=== PATIENT | male | born 1960 | race Caucasian/White ===

== ENCOUNTER → 2020-04-16 09:50 | Outpatient (CLI) | payer OTHER, SELFPAY ==
[2020-04-16 10:15] LABS: RBC Urine None Seen (0-5/HPF); WBC Urine None Seen (0-5/HPF)
[2020-04-16 11:33] LABS: Add Manual Diff / Slide Review NO; Basophils Absolute Auto 100 /uL (0-100); Eosinophils Absolute Auto 200 /uL (0-450); Eosinophils Percent Auto 2.4 % (2-4); Hematocrit 43.5 % (41-53); Hemoglobin 14.3 g/dL (13.5-17.5); Lymphocytes Absolute Auto 1200 /uL (1100-4500); Lymphocytes Percent Auto 17.3 % (25-40); Mean Corpuscular HGB Conc 32.9 % (30-36); Mean Corpuscular Volume 88.1 fL (80-100); Monocytes Absolute Auto 500 /uL (0-900); Neutrophils Absolute Auto 4800 /uL (1500-7000); Neutrophils Percent Auto 72.3 % (50-75); Platelet Count 216 X10^3/uL (150-400); Red Blood Cell Count 4.94 X10^6/uL (4.5-5.9); Red Cell Distribution Width 13.4 % (11.6-14.8); White Blood Cell Count 6.7 X10^3/uL (4.5-11.0)
[2020-04-16 11:34] LABS: Appearance Urine UA CLEAR; Bilirubin Urine UA NEGATIVE (NEGATIVE); Color Urine UA YELLOW; Glucose Urine UA NEGATIVE (Negative); Ketones Urine UA NEGATIVE (NEGATIVE); Leukocyte Esterase Urine UA NEGATIVE (NEGATIVE); Nitrite Urine UA NEGATIVE (Negative); Occult Blood Urine UA NEGATIVE (Negative); Protein Urine UA NEGATIVE (Negative); Urobilinogen Urine UA 0.2 E.U./dL (0.2); pH Urine UA 5.5 (4.5-8.0)
[2020-04-16 11:45] LABS: Blood Urea Nitrogen 17 mg/dL (9-20); Calcium 8.7 mg/dL (8.4-10.2); Carbon Dioxide 26 mmol/L (22-32); Chloride 103 mmol/L (98-107); Estimated Glomerular Filt Rate > 60.0 mL/min (>60); Glucose 98 mg/dL (80-110); HEMOLYSIS < 15 (0-50); Potassium 4.3 mmol/L (3.4-5.1); Sodium 137 mmol/L (137-145)
[2020-04-16 11:53] LABS: Hemoglobin A1C% w Est Avg Glu 5.4 % (4.0-6.0)
[2020-04-16 12:26] LABS: Bacteria Urine Occasional (0-1); Culture Indicated Urine Cult Not Indicated; Mucus Urine 2+ (Negative)
== END ==
PROVIDERS: Referring Provider Orthopaedic Surgery; Visit Provider Orthopaedic Surgery
DX: Z01.818 Encounter for other preprocedural examination (principal); Z01.812 Encounter for preprocedural laboratory examination; R73.9 Hyperglycemia, unspecified; N39.0 Urinary tract infection, site not specified
CPT/HCPCS: 36415; 80048; 81001; 83036; 85025; 93005; 93010

== ENCOUNTER → 2020-04-20 15:04 | Outpatient (CLI) | payer OTHER, SELFPAY ==
[2020-04-21 16:18] LABS: COVID19 Sendout Not Detected (Not Detect)
== END ==
PROVIDERS: Visit Provider Physician Assistant
DX: Z11.59 Encounter for screening for other viral diseases (principal)
CPT/HCPCS: 87635

== ENCOUNTER 2020-04-23 06:15 | Day surgery (SDC) | payer OTHER, SELFPAY ==
[2020-04-16 13:59] VITALS: BMI 28.8
[2020-04-23] VITALS (12 sets, daily range): BP systolic 102–142; BP diastolic 58–84; PULSE 63–100; RESP 11–18; TEMP 36.1–36.8; O2SAT 92–96; BMI 28.8
--- NOTE | 2020-04-23 | DI.RAD.S_ITS ---
PROCEDURE: XR HIP W PEL IF DONE LT 2V INDICATIONS: TOTAL LEFT HIP POST OP TECHNIQUE: AP pelvis and lateral view of the left hip acquired. COMPARISON: Located Within [facility], [place], XR HIP W PEL IF DONE LT 2V, 04/23/2020, 11:01. FINDINGS: Bones: Patient is status post left hip arthroplasty, with hardware components in expected positions. The hip joint appears congruent. The visualized bony structures appear intact. Moderate degenerative change in the right hip as well. Soft tissues: Overlying postoperative changes are noted. No suspicious soft tissue densities. IMPRESSION: 1. Expected appearance of left hip arthroplasty. 2. Moderate degeneration of the right hip. Dictated by: Alyce Garza M.D. on 04/23/2020 at 13:20 Approved by: Alyce Garza M.D. on 04/23/2020 at 13:21
--- NOTE | 2020-04-23 | DI.RAD.S_ITS ---
PROCEDURE: XR HIP W PEL IF DONE LT 2V INDICATIONS: LEFT TOTAL HIP TECHNIQUE: Intraoperative fluoroscopy for left hip replacement. COMPARISON: None. FINDINGS: Bones: Four intraoperative fluoroscopic spot images demonstrate left hip arthroplasty changes with components in the expected location. No visible unexpected fractures. IMPRESSION: Fluoroscopy for left hip arthroplasty. Dictated by: Alyce Garza M.D. on 04/23/2020 at 13:17 Approved by: Alyce Garza M.D. on 04/23/2020 at 13:18
[2020-04-23] MEDS: LACTATED RINGERS 1,000 ML 42 ML IV ×2 (07:48→09:32)
--- NOTE | 2020-04-23 08:24 | PM.PREOP ---
Pre-operative Note COVID-19 COVID-19 status: Negative Interval Note History & Physical reviewed/Exam performed by Physician: Yes Changes to H&P: No
--- NOTE | 2020-04-23 08:25 | P.OP_ITS ---
Operative Date/Time/Diagnoses Date of procedure: 04/23/20 Time of procedure: 08:25 Pre-op diagnosis: left hip osteoarthritis Post-op diagnosis: same Procedure & Clinicians Procedure: Left total hip arthroplasty anterior approach Same procedure as scheduled: Yes Indications: The patient has had progressively worsening left hip pain with radiographic changes consistent with arthritis. Non-operative management has failed and the patient has requested total hip replacement. The risks, benefits and alternatives to surgery were discussed with the patient prior to proceeding. Risks discussed included, but were not limited to, failure to relieve pain, leg length discrepancy, dislocation, stiffness, infection, nerve damage, deep venous thrombosis, pulmonary embolism, stroke, coma, heart attack, permanent paralysis and , as well as the potential need for eventual revision of the prosthetic. Surgeon: Mili Walden Medical Device Sales Consultant: Nikita Hendricks Anesthesia Type: General and Spinal Operative Notes Findings: Severe left hip osteoarthritis, good stability Closure Type: primary Specimen(s): none sent Prosthetic devices, grafts, tissues, transplants, or devices: Walden [employer] Nephew 60 mm R3 cup,one 20 mm screw, size 9 standard offset anthology, 36+ 0 head Estimated Blood Loss (mL): 250 Procedure in detail: The patient was brought to the operating room. Patient was carefully positioned in the supine position. Time-out was performed and antibiotics were given. Anesthesia was induced. He was positioned in the on the table in order to allow hyperextension of the hip. The left lower extremity was prepped and draped in a standard sterile fashion. An anterior left hip incision was made 1 fingerbreadth lateral to the anterior superior iliac spine and extended distally towards the greater trochanter. Dissection was carried out through skin and subcutaneous tissues. The skin and subcutaneous tissues were carefully injected with Marcaine. Superficial hemostasis was achieved. The fascia over the tensor fascia win was defined and incised with a knife. Two Allis clamps were used to grasp the fascia. Tensor fascia win was retracted laterally. A gelpi retractor was placed. Dissection was carried out down along the neck. The circumflex vessels were carefully identified and cauterized with the Aqua Mantis. There was good visualization of the femoral neck. A Cobra was placed superior to the neck and the gluteus fibers were carefully stripped from that superior aspect of the capsule. A 2nd retractor was placed along the inferior aspect of the neck. The rectus insertion along the capsule was partially released. A 3rd retractor that was then gently placed over the rim of the acetabulum under the rectus. Capsule was carefully incised and released from the intertrochanteric line circumferentially superior to the mid sagittal line and inferiorly to the mid sagittal line until the lesser trochanter was palpable. A tag stitch was placed both in the superior and inferior limb of the capsular insertion. Along the acetabulum capsule was also released up to the mid sagittal 12:00 position. A portion of the labrum was resected. A saw was used to perform an osteotomy at the level of the intertrochanteric line and the junction of the superior femoral neck leaving approximately 1 finger breath of residual inferior neck above the lesser trochanter. He had a very tight capsule which was meticulously mobilized throughout the procedure. We kept tagged in order to allow adequate retraction. A 2nd cut was made along the femoral neck at the base of the head and a napkin ring of neck was removed. Corkscrew was placed in the femoral head and the head was removed without difficulty. Retractors were then repositioned around the acetabulum. Residual labrum was resected and additional osteophytes were remov ed. A reamer that was 4 mm below the templated size was placed by hand in the acetabulum and it was reamed to centralize the acetabulum. It was then reamed up to 1 under the templated size and fluoroscopy was brought in to confirm the position of the reaming and depth of reaming. I reamed 1 under the anticipated size and touched the rim with line to line reaming. A trial cup was placed and noted that it was appropriately sized and fluoroscopy confirmed position and depth. The component was open and inserted without difficulty fluoroscopic imaging was used to confirm that the cup had been juan quately seated and was well positioned. It was further stabilized with a single screw. Neutral poly liner was placed. The cup was tested and noted to be stable. Attention was then directed to the femur. The femur was gently hyperextended additional capsular release was performed as needed in order to allow adequate visualization of the proximal femur with elevation of the femur. Patient was pl aced in a hyperextended slightly adducted position with maximum external rotation. Box osteotome was used to check for any residual neck as well as sclerotic bone along the trochanter. [place] pepper was placed in the femur. Additional broaching was performed. Canal finder was used to determine the alignment of the canal and position. Size 1 broach was placed. The canal was then appropriately broached up to the templated size as long as there was adequate stability of the broach and serial advancement of the broach without excessive impingement. Specific attention was directed at avoiding varus attempting to direct the distal aspect of the broach more anteriorly and avoiding excessive anteversion. Trial reduction showed acceptable range of motion, good stability, no posterior impingement, evangelical of leg length and appropriate lateral shuck. I also hyperflexed the hip and checked that there was no impingement anteriorly and there was good stability with flexion, adduction and internal rotation. Marcaine and Exparel were injected. The stem was placed without difficulty. Repeat trial reduction and x-ray showed acceptable overall position, length, and no evidence of the femoral fracture. Final head was placed. Wound was meticulously irrigated with normal saline. The hip was reduced and additional Exparel and Marcaine were injected. The capsule was closed with interrupted nonabsorbable sutures. The fascia of the tensor was closed with interrupted and running Vicryl. No drain was placed. Any tensor fascia win muscle that appeared to be contused or injured which was a minimal amount was carefully resected. Capsule around the tensor was injected with Exparel and Marcaine. The skin was closed with barbed stitches for the subcutaneous tissue and skin. We also used surgical glue. The wound was dressed sterilely. Brief Betadine soak was also used and was meticulously irrigated with normal saline. Patient was transferred to recovery room in satisfactory condition. Complications: none Post-operative Condition: stable Disposition: Acute Care Plan for aftercare: The patient will be maintained on a standard total hip replacement protocol with weight bearing as tolerated and anterior hip precautions. The patient will receive Aspirin and sequential compression devices for DVT prophylaxis. The patient will be discharged home when safe for the home environment.
[2020-04-23] MEDS: CEFAZOLIN 2 GM/100 ML FROZ.PIGGY IV ×2 (08:35→16:25)
[2020-04-23] MEDS: VANCOMYCIN 1,000 MG/200 ML PIGGYBACK 200 MG IV (08:45)
--- NOTE | 2020-04-23 09:08 | SUR.OPER ---
Supine on padded [place] table with bilateral legs secured in padded positioning boots and suspended in positioning spars, operative leg in traction per surgeon. Head on one pillow. Arm on non-operative side secured on padded armboard <90 degrees abduction. Arm on operative side padded and resting across chest then secured with tape over sheet. Padded perineal post in place per surgeon.
[2020-04-23] MEDS: BUPIVACAINE 0.25% W/ EPI 30 ML VIAL 60 ML INJ (09:16)
[2020-04-23] MEDS: BUPIVACAINE LIPOSOME 266 MG/20 ML VIAL INJ (09:17)
[2020-04-23] MEDS: SODIUM CHLORIDE IRRIG SOLUTION 250 ML, POVIDONE-IODINE SPONGE STICKS 1 APPLIC IRR (09:22)
[2020-04-23] MEDS: TRANEXAMIC ACID 1,000 MG VIAL 2000 MG INJ ×2 (12:16)
--- NOTE | 2020-04-23 13:10 | SUR.PHASEI ---
report called to MIK Morrison on floor. pt ready to transfer up to room now, taking po fluids well, denies pain or nausea, A&O, moving both feet and legs
[2020-04-23] MEDS: GABAPENTIN 600 MG TABLET PO ×3 (14:04→20:45)
[2020-04-23] MEDS: LACTATED RINGERS 1,000 ML 125 ML IV ×2 (14:04→21:29)
[2020-04-23] MEDS: ACETAMINOPHEN 325 MG TABLET 650 MG PO ×2 (14:09→20:45)
--- NOTE | 2020-04-23 14:51 | PC.NURSE ---
Addendum entered by Anne-Marie Laurent R.N. 04/24/20 12:34: pt discharged to home following lengthy conversation with pt and spouse- and after working with PT - MEDICATED WITH PO OXYCODONE AND GABAPENTIN PRIOR TO DC Original Note: pt received from [facility] having received 5mg po oxycodone there- he is alert/oriented and denies any discomfort - he did take scheduled tylenol and gabapentin but declined ibuprofen due to taking eliquis ( for hx of pe)- taking diet well and lr infusing at 125cc/h- pt has not voided post op yet- dressing to left anterior hip cdi- + cms bilaterally - knee hi scd's in place
--- NOTE | 2020-04-23 16:19 | PT.IIE ---
Current Diagnoses Unilateral primary osteoarthritis, left hip (04/23/20) Surgery Performed Operation Date: 04/23/20 07:45 Actual Procedures p Total Hip Arthroplasty/Anterior Approach(Left) - Mili Walden MD Surgical History (Last Updated 04/16/20 @ 14:13 by Jessica Neumann RN) History of vasectomy (Acute) Hx of appendectomy (Acute) Hx of arthroscopy of left knee (Acute) Hx of lithotripsy (Acute) Medical History (Last Updated 04/16/20 @ 14:13 by Jessica Neumann RN) Easy bruisability (Acute) Kidney stones (Acute) Low back pain (Acute) Osteoarthritis (Acute) Pulmonary embolism (Acute ~2016) Sleep apnea (Acute) Stomach ulcer (Acute) Physical Therapy Inpatient Evaluation/Re-Eval M1 PT/OT-IP Prior Functional Status Start: 04/23/20 14:59 Freq: NEEDED Status: Active Protocol: Document 04/23/20 15:50 AW (Rec: 04/23/20 16:19 AW [email or web address]) Medical Review Prior Functional Status Medical History Reviewed Yes Communication WNL. No known deficits. Mobility and Gait Independent but with difficulty on uneven terrain and on inclines. Activities of Daily Living and IADL's Dressing has been difficult but pt has remained independent with all ADL's and IADL's. Social History Household Members spouse Living Arrangements Apartment/Condo Number of Stairs To Enter/Railing? Pt currently lives in an apartment above his office/ shop. There are 17 SERA with left rail ascending. However, pt and his plan to stay at his poegkw-ub-snb's house at least until Wednesday. That house is one level and there are two SERA with no railing. Details below refer to the avnvnx-wd-job's house. 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 He lives with his , Jocelyn, who will be with him at his rjkybo-lj-rcb' s house at discharge. M2 PT-IP Current Condition Start: 04/23/20 14:59 Freq: NEEDED Status: Active Protocol: Document 04/23/20 15:50 AW (Rec: 09/22/20 16:19 AW [email or web address]) Physical Therapy Current Condition Current Condition Evaluation Date 04/23/20 Treatment Diagnosis L VIVIAN with anterior approach; difficulty in walking Onset Date 04/23/20 Precautions Anterior Hip Precautions No Hip Extension,No Hip External Rotation Weight Bearing Status Weight Bearing Status Weight Bear as Tolerated M3 PT-IP Subjective Start: 04/23/20 14:59 Freq: NEEDED Status: Active Protocol: Document 04/23/20 15:50 AW (Rec: 04/23/20 16:19 AW [email or web address]) Subjective Physical Therapy Visit Type Type Initial Evaluation Visit Start Time 15:06 Visit Stop Time 15:45 Total Visit Minutes 39 Physical Therapy Visit Comments Patient Comments Pt is willing to participate with PT Therapy Pain Assessment Pain When Pain Assessed During Mobility Pain Present Pain Present Pain Reported Location Left Hip Intensity 2 Pain Management Techniques Apply Cold,Timing of Activity with Medications M4 PT-IP Mobility and Gait Start: 04/23/20 14:59 Freq: NEEDED Status: Active Protocol: Document 04/23/20 15:50 AW (Rec: 04/23/20 16:19 AW [email or web address]) PT-Bed Mobility Assessment Supine to Sit Supine to Sit Standby Assistance Scooting Scooting to Edge of Bed Standby Assistance PT-Transfer Assessment Sit to and From Stand Sit to and from Stand Minimal Assistance,1 Person Assistance,Use of Upper Extremities Equipment Transfer Assistive Device Gait Belt,Front Wheeled Walker Transfers Transfer Destination Chair,Bedside Commode Transfer Technique Stand Step Pivot Transfer Ability Level of Assist Minimal Assistance,1 Person Assistance,Use of Upper Extremities Comments Mobility Comments Pt was lying in bed when PT arrived with spouse visiting in the room. PT provided brief education on anterior hip precautions. Pt completed supine to sit with HOB flat by first sitting up to long- sitting position and then scooting himself toward the left side of the bed. He pivoted his legs to dangle off the edge of the bed - all SBA . Pt then stood from the bed in lowest position min A x 1 due to initial unsteadiness. Pt had no sensation of urinary urgency but voided as he stood. He was able to pivot transfer to the BSC set up on his left side CGA and cues for quad activation. Pt sat on the commode but was unable to void. He stood again CGA and completed step pivot transfer to the bedside chair on his left side. BP was stable (SBP 133 before transfer and 118 after transfer) and pt denied lightheadedness or nausea. Pt was positioned on the chair with call light and all needs within reach. Pt agreed to use the call light for all mobility needs. Gait Assessment Gait Gait Assistance Required: Contact Guard Assist Distance (Feet) 3 Able to Maintain Weight Bearing Status Yes During Gait Assistive Devices Assistive Device Gait Belt,Front Wheeled Walker Gait Deviations General Gait Pattern Antalgic,Decreased Stride Length,Decreased Feet Clearance,Flexed Trunk,Step-to Gait Factors Limiting Gait Function Factors Limiting Gait Function Decreased Sensation,Decreased Strength,Limited Range of Motion,Pain,Poor Balance Comments Gait Comments Transfer only due to persistent numbness. See mobilty comments for details. Stair Climbing Assessment Comments Stair Climbing Comments Not assessed. Pt must complete stair training prior to discharge. PT-Balance Assessment Sitting Balance and Reactions Static Sitting Balance Ability Normal Dynamic Sitting Balance Ability Normal Standing Balance and Reactions Static Standing Balance Ability Good Dynamic Standing Balance Ability Good Device Used FWW M5 PT-IP Objective Assessments Start: 04/23/20 14:59 Freq: NEEDED Status: Active Protocol: Document 04/23/20 15:50 AW (Rec: 04/23/20 16:19 AW [email or web address]) Orientation Orientation/Cognition Level of Alertness Alert Orientation Name,Day of Week,Place, Situation Language Function Ability No Deficits Noted Safety Awareness Decreased Safety Awareness Memory Description No Deficits Noted Comments Pt is slightly impulsive, tending to overestimate his ability and requiring verbal cues for sequencing and pacing . Gross Range of Motion Lower Extremity ROM Assessment Left Impaired Strength Lower Extremity Strength Assessment Left Impaired Comments Strength Comments RLE grossly 5/5 Sensation Assessment Sensation Gross Sensation Right LE Impaired,Left LE Impaired Light Touch Impaired Proprioception (Position) Impaired Sensation Description Numbness Comments Sensation Comments Pt reports numbness to bilateral glutes and posterior thighs. Muscle Tone Muscle Tone WNL Yes M6 PT-IP Treatment Start: 04/23/20 14:59 Freq: NEEDED Status: Active Protocol: Document 04/23/20 15:50 AW (Rec: 04/23/20 16:19 AW [email or web address]) Physical Therapy Treatment Exercises Exercises Ankle Pumps,Gluteal Sets,Quad Sets,Heel Slides Education Education Provided Precautions,Weight Bearing Status,Post-Op Packet,Safety Other Treatments Other Treatment Performed Provided education on role of PT, plan of care, anterior hip precautions, and safe use of FWW. M7 PT-IP Assessment and Plan Start: 04/23/20 14:59 Freq: NEEDED Status: Active Protocol: Document 04/23/20 15:50 AW (Rec: 04/23/20 16:19 AW [email or web address]) PT Summary Assessment and Plan Potential Rehabilitation Potential Good Status of Condition at Evaluation Evolving Summary Impairments Pain,ROM,Strength,Balance, Sensation,Bed Mobility, Transfers,Gait,Activity Tolerance Assessment Summary Celestine is a 60 yo man seen for PT evaluation on POD0 following L VIVIAN with anterior approach. He is independent in all regards at baseline. He currently lives in an apartment above his shop with 17 steps to access but plans to stay at his wuvzdy-ty-yko's house with his assisting . There are only two steps to enter with no railing in that setting. On evaluation, pt numbness persists to BLE which limits his mobility to transfers only but he requries no more than min assist. PT anticipates he will progress quickly and be safe to discharge to his SOPHIA's house with assist. Outpatient PT is already scheduled to begin within a week. Goals Bed Mobility Goal Independent Transfer Goal Standby Assistance,Front Wheeled Walker Gait Goal Standby Assistance,Front Wheel Walker Gait Distance 200 Other Goals - up/down 2 steps without railing CGA Days to Meet Goals 2 Frequency of Treatment Frequency Of Treatment Twice a Day Treatment Plan Physical Therapy Treatment Plan Bed Mobility Training,Transfer Training,Gait Training, Therapeutic Exercise,Balance Retraining,Post Op Education, Discharge Planning,Hot or Cold Pack,Neuromuscular Re-ed Other Recommendations and Next Treatment review precautions, transfers, Focus gait training with FWW, stairs when able Recommendations To Nursing Amount of Assist Needed 1 Person Assist Discharge Recommendations PT Discharge Recommendations Home with Assistance, Outpatient PT Transportation Needs at Discharge Private Vehicle
[2020-04-23] MEDS: ONDANSETRON 4 MG ODT PO (16:25)
[2020-04-23] MEDS: ASPIRIN EC 81 MG TABLET PO (20:45)
[2020-04-23] MEDS: DOCUSATE 100 MG CAPSULE PO (20:45)
[2020-04-24] MEDS: CEFAZOLIN 2 GM/100 ML FROZ.PIGGY IV (00:22)
[2020-04-24 03:24] VITALS: BP 128/66; PULSE 70; RESP 16; TEMP 36.2; O2SAT 97
[2020-04-24] MEDS: OXYCODONE IR 5 MG TABLET PO ×3 (03:36→12:20)
[2020-04-24 05:14] LABS: Hematocrit 35.5 % (41-53); Hemoglobin 11.7 g/dL (13.5-17.5)
--- NOTE | 2020-04-24 07:46 | P.PN_ITS ---
Subjective Subjective Date Patient Seen: 04/24/20 Time Patient Seen: 07:47 Interval history: He is doing well with minimal pain and his left hip. He had no pain medially postoperatively but now notes that it is somewhat painful when he advances his leg. Does not have substantial pain with weight-bearing. He has been able to void spontaneously and has no nausea. Exam Vital Signs (past 8 hours): - 04/23/20 23:55 04/24/20 03:24 Temperature 97.3 F L 97.1 F L Pulse Rate 65 70 Respiratory Rate 16 16 Blood Pressure 113/68 128/66 Pulse Oximetry 94 97 Oxygen Delivery Method Room Air Oxygen Flow Rate 0 Narrative Exam Narrative: He gets out of bed without diff difficulty. His dressing is dry has no pain with axial loading of his leg but does have some with active hip fle xion. He is neurologically intact distinct distally and is calfs are soft bilaterally. Objective Labs Result Diagrams: 04/24/20 04:48 Labs: Laboratory Results - last 24 hr 04/24/20 04:48 Hgb 11.7 L Hct 35.5 L Assessment & Plan Assessment & Plan narrative: Doing well status post right total hip arthroplasty. Plan continue to mobilize out of bed with physical therapy and discharged home with outpatient physical therapy.
[2020-04-24 08:00] VITALS: BP 128/67; PULSE 70; RESP 18; TEMP 36.5; O2SAT 94
[2020-04-24] MEDS: DOCUSATE 100 MG CAPSULE PO (08:15)
[2020-04-24] MEDS: GABAPENTIN 600 MG TABLET PO ×2 (08:15→12:20)
[2020-04-24] MEDS: ACETAMINOPHEN 325 MG TABLET 650 MG PO (08:17)
--- NOTE | 2020-04-24 09:57 | PT.IPTN ---
Current Diagnoses Unilateral primary osteoarthritis, left hip (04/23/20) Surgery Performed Operation Date: 04/23/20 07:45 Actual Procedures p Total Hip Arthroplasty/Anterior Approach(Left) - Mili Walden MD Physical Therapy Treatment Note M2 PT-IP Current Condition Start: 04/23/20 14:59 Freq: NEEDED Status: Discharge Protocol: Document 04/23/20 15:50 AW (Rec: 04/23/20 16:19 AW [email or web address]) Physical Therapy Current Condition Current Condition Evaluation Date 04/23/20 Treatment Diagnosis L VIVIAN with anterior approach; difficulty in walking Onset Date 04/23/20 Precautions Anterior Hip Precautions No Hip Extension,No Hip External Rotation Weight Bearing Status Weight Bearing Status Weight Bear as Tolerated M3 PT-IP Subjective Start: 04/23/20 14:59 Freq: NEEDED Status: Discharge Protocol: Document 04/24/20 09:19 SP (Rec: 04/24/20 13:06 SP [email or web address]) Subjective Physical Therapy Visit Type Type Treatment Note Visit Start Time 09:19 Visit Stop Time 09:57 Total Visit Minutes 38 Number of SUPERVISOR INTELLIGENCE ANALYST Visits 1 Physical Therapy Visit Comments Patient Comments Pt is willing to participate with PT Therapy Pain Assessment Pain When Pain Assessed During Mobility Pain Present Pain Present Pain Reported Location Left Hip Intensity 6 Scale Used 2/10 at rest/ gait, 6/10 durign descend stairs/ decent into chair- ant hip Description Spasm,With Movement Pain Behaviors Facial Grimacing,Wincing Pain Management Techniques Apply Cold,Re-positioning, Timing of Activity with Medications M4 PT-IP Mobility and Gait Start: 04/23/20 14:59 Freq: NEEDED Status: Discharge Protocol: Document 04/24/20 09:19 SP (Rec: 04/24/20 13:06 SP [email or web address]) PT-Bed Mobility Assessment Supine to Sit Supine to Sit Standby Assistance Scooting Scooting to Edge of Bed Standby Assistance PT-Transfer Assessment Sit to and From Stand Sit to and from Stand Standby Assistance,Use of Upper Extremities Equipment Transfer Assistive Device Gait Belt,Front Wheeled Walker Orthotic/Prosthetic Devices or Brace: No Transfers Transfer Destination Chair Transfer Technique Stand Step Pivot Transfer Ability Level of Assist Standby Assistance,Use of Upper Extremities Comments Mobility Comments Supine>sitting SBA using BUE, ambulated around room and standing balance at sink to brush teeth sBA, stable and FWW good positioning. Pt ambulated further distance full inpatient floor room<> stairs SBA, ascend/descend 2 PF steps using fWW CGA, ascend / descend 6 stairs LHR and occasional MEDICATION ASSISTANT on R initially step to patterning. Gait Assessment Gait Gait Assistance Required: Contact Guard Assist Able to Maintain Weight Bearing Status Yes During Gait Assistive Devices Assistive Device Gait Belt,Front Wheeled Walker Orthotic/Prosthetic Devices or Brace: No Gait Deviations General Gait Pattern Antalgic,Decreased Stride Length,Decreased Feet Clearance,Flexed Trunk,Step-to Gait Factors Limiting Gait Function Factors Limiting Gait Function Decreased Sensation,Decreased Strength,Limited Range of Motion,Pain,Poor Balance Comments Gait Comments Ambulated full distance of inpatient floor room<> stairs SBA, FWW step to gait improved with forward movement of FWW as progressed and little more receiprocal gait educated no L hip extension precautions, cued knee extension heel toe gait LLE, UE WB on FWW needed lessened as distance progressed. Stair Climbing Assessment Evaluation Level of Assist On Stairs Contact Guard Assistance Devices Stair Climbing Assistive Devices Front Wheel Walker Technique/Endurance Stair Climbing Direction Ascend and Descend Stair Climbing Technique Step to Step Number of Steps Climbed 1 Stair Climbing Set # Repetitions (reps) 2 Comments Stair Climbing Comments Ascend/descend 2 PF steps using FWW to assimulated enterance [id number] home and able to ascend/descend 6 stairs L HR and MEDICATION ASSISTANT on R during first stair then ableto complete rest just LHR step to gait CGA. SUPERVISOR INTELLIGENCE ANALYST confident patient can complete full 17 stairs if wanted at home but tiring and will plan to go to [id number] home for now. PT-Balance Assessment Sitting Balance and Reactions Static Sitting Balance Ability Normal Dynamic Sitting Balance Ability Normal Standing Balance and Reactions Static Standing Balance Ability Good Dynamic Standing Balance Ability Good Device Used FWW M5 PT-IP Objective Assessments Start: 04/23/20 14:59 Freq: NEEDED Status: Discharge Protocol: Document 04/23/20 15:50 AW (Rec: 04/23/20 16:19 AW [email or web address]) Orientation Orientation/Cognition Level of Alertness Alert Orientation Name,Day of Week,Place, Situation Language Function Ability No Deficits Noted Safety Awareness Decreased Safety Awareness Memory Description No Deficits Noted Comments Pt is slightly impulsive, tending to overestimate his ability and requiring verbal cues for sequencing and pacing . Gross Range of Motion Lower Extremity ROM Assessment Left Impaired Strength Lower Extremity Strength Assessment Left Impaired Comments Strength Comments RLE grossly 5/5 Sensation Assessment Sensation Gross Sensation Right LE Impaired,Left LE Impaired Light Touch Impaired Proprioception (Position) Impaired Sensation Description Numbness Comments Sensation Comments Pt reports numbness to bilateral glutes and posterior thighs. Muscle Tone Muscle Tone WNL Yes M6 PT-IP Treatment Start: 04/23/20 14:59 Freq: NEEDED Status: Discharge Protocol: Document 04/24/20 09:19 SP (Rec: 04/24/20 13:06 SP [email or web address]) Physical Therapy Treatment Education Education Provided Precautions,Weight Bearing Status,Post-Op Packet,Safety Other Treatments Other Treatment Performed Recalled anterior hip precautions, and safe use of FWW. M7 PT-IP Assessment and Plan Start: 04/23/20 14:59 Freq: NEEDED Status: Discharge Protocol: Document 04/24/20 09:19 SP (Rec: 04/24/20 13:06 SP [email or web address]) PT Summary Assessment and Plan Potential Rehabilitation Potential Good Status of Condition at Evaluation Evolving Summary Impairments Pain,ROM,Strength,Balance, Sensation,Bed Mobility, Transfers,Gait,Activity Tolerance Assessment Summary Pt required SBA during transfers, and gait, CGA during stair mgt. Pt reported low level discomfort L anterior thigh and increases during descend PF step and eccentric descent to sit, improved post education reposition LLE forward before sitting. Pt is ok to return home with when medically stable. Outpatient PT is already scheduled to begin within a week. Goals Bed Mobility Goal Independent Transfer Goal Standby Assistance,Front Wheeled Walker Gait Goal Standby Assistance,Front Wheel Walker Gait Distance 200 Other Goals - up/down 2 steps without railing CGA Days to Meet Goals 2 Frequency of Treatment Frequency Of Treatment Twice a Day Treatment Plan Physical Therapy Treatment Plan Bed Mobility Training,Transfer Training,Gait Training, Therapeutic Exercise,Balance Retraining,Post Op Education, Discharge Planning,Hot or Cold Pack,Neuromuscular Re-ed Other Recommendations and Next Treatment LE exercises, gait using fWW Focus Recommendations To Nursing Amount of Assist Needed 1 Person Assist Discharge Recommendations PT Discharge Recommendations Home with Assistance, Outpatient PT Transportation Needs at Discharge Private Vehicle
--- NOTE | 2020-04-24 13:05 | CM.IDA ---
Initial DCP Assessment Note Pt is a 60 yo male, resident of [place], now POD#1 from left hip surgery w/ Dr Walden PCP: Celina Muñoz Payer: Zakia Reviewed chart, pt discussed in multidisciplinary rounds this morning. Therapy has cleared pt for return home w/family to assist and pt has planned for home, DC order from Ortho has already been initiated this morning. No needs expected from DC planning team although will remain available in case this changes today. MICHAEL Sellers
== END 2020-04-24 12:50 | disposition home or self-care (01) ==
LOC: OR 06:18 → AC 06:20 → ICU 10:09
PROVIDERS: PCP Family Medicine; Referring Provider Orthopaedic Surgery; Visit Provider Orthopaedic Surgery
PROC: (CPT 27130; principal; 2020-04-23 07:45)
DX: M16.12 Unilateral primary osteoarthritis, left hip (principal); Z86.711 Personal history of pulmonary embolism; Z79.01 Long term (current) use of anticoagulants
CPT/HCPCS: 27130; 36415; 73502; 76000; 85014; 85018; 97110; 97116; 97161; 97530; C1776; C9290; J0171; J0690; J1100; J2250; J2274; J2405; J2704; J3010

== ENCOUNTER → 2021-01-15 09:50 | Outpatient (CLI) | payer OTHER, SELFPAY ==
[2020-04-23 13:46] VITALS: BMI 28.8
[2021-01-15 10:03] LABS: Bacteria Urine None Seen; RBC Urine None Seen (0-5/HPF); WBC Urine None Seen (0-5/HPF)
[2021-01-15 10:36] LABS: Appearance Urine UA CLEAR; Bilirubin Urine UA NEGATIVE (NEGATIVE); Color Urine UA YELLOW; Glucose Urine UA NEGATIVE (Negative); Ketones Urine UA NEGATIVE (NEGATIVE); Leukocyte Esterase Urine UA NEGATIVE (NEGATIVE); Nitrite Urine UA NEGATIVE (Negative); Occult Blood Urine UA TRACE-INTACT (Negative); Protein Urine UA NEGATIVE (Negative); Urobilinogen Urine UA 0.2 E.U./dL (0.2); pH Urine UA 5.5 (4.5-8.0)
[2021-01-15 10:42] LABS: Culture Indicated Urine Cult Not Indicated; Urine Comments Microscopic Normal
[2021-01-15 10:46] LABS: Hemoglobin A1C% w Est Avg Glu 5.4 % (4.0-6.0)
[2021-01-15 10:47] LABS: BUN Creatinine Ratio 23.5 (6-22); Blood Urea Nitrogen 16 mg/dL (9-20); Calcium 9.3 mg/dL (8.4-10.2); Carbon Dioxide 24 mmol/L (22-32); Chloride 105 mmol/L (98-107); Estimated Glomerular Filt Rate > 60.0 mL/min (>60); Glucose 81 mg/dL (80-110); HEMOLYSIS < 15 (0-50); Potassium 4.1 mmol/L (3.4-5.1); Sodium 136 mmol/L (137-145)
[2021-01-15 11:03] LABS: Erythrocyte Sedimentation Rate 1 MM/HR (0-15)
[2021-01-15 11:06] LABS: Add Manual Diff / Slide Review NO; Basophils Absolute Auto 100 /uL (0-100); Basophils Percent Auto 1.2 % (0-2); Eosinophils Absolute Auto 200 /uL (0-450); Eosinophils Percent Auto 2.9 % (2-4); Hematocrit 43.4 % (41-53); Hemoglobin 14.3 g/dL (13.5-17.5); Lymphocytes Absolute Auto 1400 /uL (1100-4500); Lymphocytes Percent Auto 23.2 % (25-40); Mean Corpuscular HGB Conc 32.9 % (30-36); Mean Corpuscular Hemoglobin 28.7 PG (26-34); Mean Corpuscular Volume 87.3 fL (80-100); Monocytes Absolute Auto 500 /uL (0-900); Monocytes Percent Auto 8.3 % (3-14); Neutrophils Absolute Auto 3800 /uL (1500-7000); Neutrophils Percent Auto 64.4 % (50-75); Platelet Count 226 X10^3/uL (150-400); Red Blood Cell Count 4.98 X10^6/uL (4.5-5.9); Red Cell Distribution Width 13.5 % (11.6-14.8); White Blood Cell Count 5.9 X10^3/uL (4.5-11.0)
== END ==
PROVIDERS: PCP Family Medicine; Referring Provider Orthopaedic Surgery; Visit Provider Orthopaedic Surgery
DX: Z01.818 Encounter for other preprocedural examination (principal); Z01.812 Encounter for preprocedural laboratory examination; R73.9 Hyperglycemia, unspecified; N39.0 Urinary tract infection, site not specified
CPT/HCPCS: 36415; 80048; 81001; 83036; 85025; 85651; 93005; 93010

== ENCOUNTER → 2021-01-27 07:51 | Outpatient (CLI) | payer OTHER, SELFPAY ==
[2020-04-23 13:46] VITALS: BMI 28.8
[2021-01-27 10:05] LABS: COVID19 -Nasal RAPID Negative (Negative)
== END ==
PROVIDERS: PCP Family Medicine; Referring Provider Physician Assistant; Visit Provider Physician Assistant
DX: Z01.812 Encounter for preprocedural laboratory examination (principal); Z20.822 Contact with and (suspected) exposure to COVID-19
CPT/HCPCS: 87635

== ENCOUNTER 2021-01-28 06:23 | Day surgery (SDC) | payer OTHER, SELFPAY ==
[2020-04-23 13:46] VITALS: BMI 28.8
[2021-01-24 12:38] VITALS: BMI 28.8
[2021-01-28] VITALS (13 sets, daily range): BP systolic 113–152; BP diastolic 56–105; PULSE 61–90; RESP 14–18; TEMP 36.1–36.8; O2SAT 95–100; BMI 30.7
--- NOTE | 2021-01-28 06:30 | DI.RAD.S_ITS ---
PROCEDURE: XR HIP W PEL IF DONE RT 2V INDICATIONS: Postop films TECHNIQUE: AP pelvis with lateral view(s) of the right hip(s). COMPARISON: [facility], [place], XR HIP W PEL IF DONE LT 2V, 04/23/2020, 12:47. FINDINGS: Bones: Patient is status post right total hip arthroplasty with anatomic right hip alignment. There is also prior left total hip arthroplasty with anatomic left hip alignment. No fractures or dislocations. No gross hardware loosening or failure. Pelvic ring appears intact. No suspicious bony lesions. Soft tissues: Expected postsurgical changes are noted in right thigh soft tissue. No suspicious soft tissue calcifications. IMPRESSION: Postop changes from right total hip arthroplasty with anatomic right hip alignment. Dictated by: Carl Dyer M.D. on 01/28/2021 at 12:31 Approved by: Carl Dyer M.D. on 01/28/2021 at 12:32
[2021-01-28] MEDS: CELECOXIB 200 MG CAPSULE PO (06:58)
[2021-01-28] MEDS: PREGABALIN 75 MG CAPSULE PO (06:58)
[2021-01-28] MEDS: VANCOMYCIN 1,000 MG/200 ML PIGGYBACK 200 MG IV (07:13)
[2021-01-28] MEDS: LACTATED RINGERS 1,000 ML 42 ML IV ×3 (07:20→11:05)
--- NOTE | 2021-01-28 07:33 | PM.PREOP ---
Pre-operative Note COVID-19 COVID-19 status: Negative Interval Note History & Physical reviewed/Exam performed by Physician: Yes Changes to H&P: No
--- NOTE | 2021-01-28 07:34 | PM.OP.1 ---
Operative Date/Time/Diagnoses Date of procedure: 01/28/21 Time of procedure: 07:45 Pre-op diagnosis: Right hip osteoarthritis Post-op diagnosis: same Procedure & Clinicians Procedure: Right total hip arthroplasty anterior approach Same procedure as scheduled: Yes Indications: The patient has had progressively worsening right hip pain with radiographic changes consistent with arthritis. Non-operative management has failed and the patient has requested total hip replacement. The risks, benefits and alternatives to surgery were discussed with the patient prior to proceeding. Risks discussed included, but were not limited to, failure to relieve pain, leg length discrepancy, dislocation, stiffness, infection, nerve damage, deep venous thrombosis, pulmonary embolism, stroke, coma, heart attack, permanent paralysis and , as well as the potential need for eventual revision of the prosthetic. Surgeon: Mili Walden Blending Tank Tender: Nikita Hendricks Anesthesia Type: General and Spinal Operative Notes Findings: Severe right hip osteoarthritis, good bone, adequate stability Closure Type: primary Specimen(s): none sent Prosthetic devices, grafts, tissues, transplants, or devices: Walden and Nephew 60 mm R3 cup, neutral poly liner, 36 by-3 Oxinium head size 10 standard offset anthology stem Estimated Blood Loss (mL): 250 Blood products transfused: none Procedure in detail: The patient was brought to the operating room. Patient was carefully positioned in the supine position. Time-out was performed and antibiotics were given. Anesthesia was induced. He was positioned in the on the table in order to allow hyperextension of the hip. The right lower extremity was prepped and draped in a standard sterile fashion. An anterior right hip incision was made 1 fingerbreadth lateral to the anterior superior iliac spine and extended distally towards the greater trochanter. Dissection was carried out through skin and subcutaneous tissues. The skin and subcutaneous tissues were carefully injected with Marcaine. Superficial hemostasis was achieved. The fascia over the tensor fascia win was defined and incised with a knife. Two Allis clamps were used to grasp the fascia. Tensor fascia win was retracted laterally. A gelpi retractor was placed. Dissection was carried out down along the neck. The circumflex vessels were carefully identified and cauterized with the Aqua Mantis. There was good visualization of the femoral neck. A Cobra was placed superior to the neck and the gluteus fibers were carefully stripped from that superior aspect of the capsule. A 2nd retractor was placed along the inferior aspect of the neck. The rectus insertion along the capsule was partially released. A 3rd retractor that was then gently placed over the rim of the acetabulum under the rectus. Capsule was carefully incised and released from the intertrochanteric line circumferentially superior to the mid sagittal line and inferiorly to the mid sagittal line until the lesser trochanter was palpable. A tag stitch was placed both in the superior and inferior limb of the capsular insertion. Along the acetabulum capsule was also released up to the mid sagittal 12:00 position. A portion of the labrum was resected. A saw was used to perform an osteotomy at the level of the intertrochanteric line and the junction of the superior femoral neck leaving approximately 1 finger breath of residual inferior neck above the lesser trochanter. A 2nd cut was made along the femoral neck at the base of the head and a napkin ring of neck was removed. Corkscrew was placed in the femoral head and the head was removed without difficulty. Retractors were then repositioned around the acetabulum. Residual labrum was resected and additional osteophytes were removed. A reamer that was 4 mm below the templated size was placed by hand in the acetabulum and it was reamed to centralize the acetabulum. It was then reamed up to 2 under the templated size and fluoroscopy was brought in to confirm the position of the reaming and depth of reaming. I reamed 1 under the anticipated size and touched the rim with line to line reaming. A trial cup was placed and noted that it was appropriately sized and fluoroscopy confirmed position and depth. The component was open and inserted without difficulty fluoroscopic imaging was used to confirm that the cup had been adequately seated and was well positioned. Neutral poly liner was placed. The cup was tested and noted to be stable. Attention was then directed to the femur. The femur was gently hyperextended additional capsular release was performed as needed in order to allow adequate visualization of the proximal femur with elevation of the femur. Patient was placed in a hyperextended slightly adducted position with maximum external rotation. Box osteotome was used to check for any residual neck as well as sclerotic bone along the trochanter. [place] pepper was placed in the femur. Additional broaching was performed. Canal finder was used to determine the alignment of the canal and position. Size 1 broach was placed. The canal was then appropriately broached up to the templated size as long as there was adequate stability of the broach and serial advancement of the broach without excessive impingement. Specific attention was directed at avoiding varus attempting to direct the distal aspect of the broach more anteriorly and avoiding excessive anteversion. Trial reduction showed acceptable range of motion, good stability, no posterior impingement, spiritism of leg length and appropriate lateral shuck. I also hyperflexed the hip and checked that there was no impingement anteriorly and there was good stability with flexion, adduction and internal rotation. Marcaine and Exparel were injected.. The stem was placed without difficulty. Repeat trial reduction and x-ray showed acceptable overall position, length, and no evidence of the femoral fracture. Final head was placed. Wound was meticulously irrigated with normal saline. The hip was reduced and additional Exparel and Marcaine were injected. The capsule was closed with interrupted nonabsorbable sutures. The fascia of the tensor was closed with interrupted and running Vicryl. No drain was placed. Any tensor fascia win muscle that appeared to be contused or injured which was a minimal amount was carefully resected. Capsule around the tensor was injected with Exparel and Marcaine. The skin was closed with barbed stitches for the subcutaneous tissue and skin. We also used surgical glue. The wound was dressed sterilely. Brief Betadine soak was also used and was meticulously irrigated with normal saline. Patient was transferred to recovery room in satisfactory condition. Complications: none Post-operative Condition: stable Disposition: Acute Care Plan for aftercare: The patient will be maintained on a standard total hip replacement protocol with weight bearing as tolerated and anterior hip precautions. The patient will receive Aspirin and sequential compression devices for DVT prophylaxis. The patient will be discharged home when safe for the home environment.
--- NOTE | 2021-01-28 07:35 | SUR.OPER ---
Supine on padded Garfield table with bilateral legs secured in padded positioning boots and suspended in positioning spars, operative leg in traction per surgeon. Head on one pillow. Arm on non-operative side secured on padded armboard <90 degrees abduction. Arm on operative side padded and resting across chest then secured with tape over sheet. Padded perineal post in place per surgeon.
[2021-01-28] MEDS: CEFAZOLIN 1 GM VIAL 2 GM IV ×2 (07:50→16:08)
[2021-01-28] MEDS: BUPIVACAINE 0.25% (PF) VIAL 30 ML INJ (08:29)
[2021-01-28] MEDS: EPINEPHrine 1 MG/ML 0.15 MG INJ (08:30)
[2021-01-28] MEDS: BUPIVACAINE LIPOSOME 266 MG/20 ML VIAL INJ (08:31)
[2021-01-28] MEDS: TRANEXAMIC ACID 1,000 MG VIAL 1000 MG INJ ×2 (08:32→11:00)
--- NOTE | 2021-01-28 11:11 | PC.NURSE ---
Day shift: Pt not on AC unit at this time.
--- NOTE | 2021-01-28 12:53 | DI.RAD.S_ITS ---
PROCEDURE: XR HIP W PEL IF DONE RT 2V INDICATIONS: Postop films TECHNIQUE: AP pelvis and lateral view of the right hip acquired. COMPARISON: [facility], [place], XR HIP W PEL IF DONE LT 2V, 04/23/2020, 12:47. [facility], [place], XR HIP W PEL IF DONE LT 2V, 04/23/2020, 11:01. FINDINGS: Bones: Patient is status post right hip arthroplasty, with hardware components in expected positions. The hip joint appears congruent. The visualized bony structures appear intact. Soft tissues: Overlying postoperative changes are noted. No suspicious soft tissue densities. IMPRESSION: Prior left total hip arthroplasty, new right total hip arthroplasty. No operative complication found. Normal alignment postoperatively. Dictated by: Tio Haney M.D. on 01/29/2021 at 12:21 Approved by: Tio Haney M.D. on 01/29/2021 at 12:21
--- NOTE | 2021-01-28 13:10 | PC.NURSE ---
Day shift: Pt on unit from PACU at approx 1215. He is A&Ox4. Denies any pain or nausea. Aquacel rt hip is CDI. No drains or Benson. VS WNL. RA 97%. Tolerating ice chips and water. Can move BLE's and sensation present. Spouse (Jocelyn) in room for support. Calf SCD's in place.
[2021-01-28] MEDS: LACTATED RINGERS 1,000 ML 125 ML IV ×2 (13:35→21:23)
[2021-01-28] MEDS: GABAPENTIN 600 MG TABLET PO ×3 (13:43→20:12)
[2021-01-28] MEDS: ACETAMINOPHEN 325 MG TABLET 650 MG PO ×2 (14:15→20:12)
--- NOTE | 2021-01-28 14:55 | PT.IIE ---
Current Diagnoses Unilateral primary osteoarthritis, right hip (01/28/21) Surgery Performed Operation Date: 01/28/21 07:45 Actual Procedures p Total Hip Arthroplasty/Anterior Approach(Right) - Mili Walden MD Medical History (Last Updated 04/16/20 @ 14:13 by Jessica Neumann, RN) Easy bruisability Kidney stones Low back pain Osteoarthritis Pulmonary embolism (~2016) Sleep apnea Stomach ulcer Physical Therapy Inpatient Evaluation/Re-Eval M1 PT/OT-IP Prior Functional Status Start: 01/28/21 17:33 Freq: NEEDED Status: Active Protocol: Document 01/28/21 14:55 AB (Rec: 01/28/21 17:47 AB [email or web address]) Medical Review Prior Functional Status Medical History Reviewed Yes Communication able to make needs know Mobility and Gait pt stated that he is independent with all mobilities and ambulation without AD Social History Household Members spouse Living Arrangements Apartment/Condo Number of Floors (Floors) One Floor Number of Stairs To Enter/Railing? 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 M2 PT-IP Current Condition Start: 01/28/21 17:33 Freq: NEEDED Status: Active Protocol: Document 01/28/21 14:55 AB (Rec: 01/28/21 17:47 AB [id number]) Physical Therapy Current Condition Current Condition Evaluation Date 01/28/21 Treatment Diagnosis s/p r VIVIAN anterior approach; difficulty in walking Onset Date 01/28/21 Precautions Anterior Hip Precautions No Hip Extension,No Hip External Rotation Weight Bearing Status Weight Bearing Status Weight Bear as Tolerated Allowed Weight Bearing Amount (enter % RLE WBAT or #) (%) M3 PT-IP Subjective Start: 01/28/21 17:33 Freq: NEEDED Status: Active Protocol: Document 01/28/21 14:55 AB (Rec: 01/28/21 17:47 AB [email or web address]) Subjective Physical Therapy Visit Type Type Initial Evaluation Visit Start Time 14:55 Visit Stop Time 15:30 Total Visit Minutes 35 Number of SUPERINTENDENT MAINTENANCE Visits 0 Physical Therapy Visit Comments Patient Comments agreeable to do PT Therapy Pain Assessment Pain Present Pain Present Denied Pain M4 PT-IP Mobility and Gait Start: 06/29/21 17:33 Freq: NEEDED Status: Active Protocol: Document 01/28/21 14:55 AB (Rec: 01/28/21 17:47 AB [email or web address]) PT-Bed Mobility Assessment Supine to Sit Supine to Sit Standby Assistance Sit to Supine Sit to Supine Standby Assistance PT-Transfer Assessment Sit to and From Stand Sit to and from Stand Minimal Assistance,1 Person Assistance,Use of Upper Extremities Equipment Transfer Assistive Device Gait Belt,Front Wheeled Walker Orthotic/Prosthetic Devices or Brace: No Comments Mobility Comments pt intially drowsy but able to answer questions and follow directions and wants to get up out of bed. reviewed anterior hip precautions with pt. pt requires cues to recall. spouse in room with pt. BP in supine: 133/78. pt completed supine to sit SBA and was able to sit on EOB SBA . completed sit to stand min A and cues for safety and ambulated in room with FWW ~ 40 ft and cues CGA. requested to go back to bed. C/o nausea afterwards but without emesis. BP checked: 136/80. completed sit to supine SBA. positioned pt on the bed. call light and table placed within reach. Gait Assessment Gait Gait Assistance Required: Contact Guard Assist,1 Person Assist Distance (Feet) 40 Able to Maintain Weight Bearing Status Yes During Gait Assistive Devices Assistive Device Gait Belt,Front Wheeled Walker Orthotic/Prosthetic Devices or Brace: No Gait Deviations General Gait Pattern Decreased Stride Length, Decreased Feet Clearance Factors Limiting Gait Function Factors Limiting Gait Function Decreased Activity Tolerance, Decreased Strength,Difficulty Following Directions,Poor Balance,Poor Safety Awareness Comments Gait Comments pls refer to mobility section for details PT-Balance Assessment Sitting Balance and Reactions Static Sitting Balance Ability Good Dynamic Sitting Balance Ability Good Standing Balance and Reactions Static Standing Balance Ability Fair Dynamic Standing Balance Ability Fair Device Used FWW M5 PT-IP Objective Assessments Start: 01/28/21 17:33 Freq: NEEDED Status: Active Protocol: Document 01/28/21 14:55 AB (Rec: 01/28/21 17:47 AB [email or web address]) Orientation Orientation/Cognition Level of Alertness Alert Orientation Name,Place,Situation Language Function Ability No Deficits Noted Safety Awareness Decreased Safety Awareness Gross Range of Motion Lower Extremity ROM Assessment Within Functional Limits Strength Lower Extremity Strength Assessment Within Functional Limits Muscle Tone Muscle Tone WNL Yes M6 PT-IP Treatment Start: 01/28/21 17:33 Freq: NEEDED Status: Active Protocol: Document 01/28/21 14:55 AB (Rec: 01/28/21 17:47 AB [id number]) Physical Therapy Treatment Education Education Provided Precautions,Weight Bearing Status,Post-Op Packet,Safety M7 PT-IP Assessment and Plan Start: 01/28/21 17:33 Freq: NEEDED Status: Active Protocol: Document 01/28/21 14:55 AB (Rec: 01/28/21 17:47 AB [id number]) PT Summary Assessment and Plan Potential Rehabilitation Potential Good Status of Condition at Evaluation Stable Summary Impairments Pain,ROM,Strength,Balance, Coordination,Cognition,Bed Mobility,Transfers,Gait, Activity Tolerance Assessment Summary pt s/p R VIVIAN and just had surgery this morning. pt requiring CGA to min A with mobility using FWW. c/o nausea limiting mobility. pt plans to go home with spouse to assist him at home. will have to complete stair climbing prior to d/c and will conduct caregiver training when appropriate. will continue to assess progress. Goals Bed Mobility Goal Independent Transfer Goal Independent,Front Wheeled Walker Gait Goal Independent,Front Wheel Walker Gait Distance 200 Other Goals up/down 17 steps B rail SBA Days to Meet Goals 5 Frequency of Treatment Frequency Of Treatment Twice a Day Treatment Plan Physical Therapy Treatment Plan Bed Mobility Training,Transfer Training,Gait Training, Therapeutic Exercise,Balance Retraining,Post Op Education, Discharge Planning,Hot or Cold Pack,Neuromuscular Re-ed, Coordination Retraining,Manual Therapy Precautions Anterior Hip Precautions No Hip Extension,No Hip External Rotation Other Precautions WBAT RLE Recommendations To Nursing Amount of Assist Needed 1 Person Assist Discharge Recommendations PT Discharge Recommendations Home with Assistance, Outpatient PT Transportation Needs at Discharge Private Vehicle
[2021-01-28] MEDS: diphenhydrAMINE 50 MG/ML VIAL 25 MG IV (16:08)
[2021-01-28] MEDS: IBUPROFEN 400 MG TABLET PO ×2 (16:54→20:12)
--- NOTE | 2021-01-28 20:01 | PC.NURSE ---
pt ambulated in hallway. min assist-fww.
[2021-01-28] MEDS: DOCUSATE 100 MG CAPSULE PO (20:12)
[2021-01-29] MEDS: CEFAZOLIN 1 GM VIAL 2 GM IV (00:30)
[2021-01-29] MEDS: IBUPROFEN 400 MG TABLET PO ×4 (00:31→13:46)
[2021-01-29] MEDS: diphenhydrAMINE 50 MG/ML VIAL 25 MG IV (00:35)
[2021-01-29 03:10] VITALS: BP 130/76; PULSE 63; RESP 16; TEMP 36.4
[2021-01-29 04:44] LABS: Hematocrit 38.7 % (41-53); Hemoglobin 12.5 g/dL (13.5-17.5)
[2021-01-29] MEDS: SODIUM CHLORIDE 0.9% FLUSH 10 ML IV (06:07)
[2021-01-29 08:00] VITALS: BP 125/70; PULSE 66; RESP 17; TEMP 36.6; O2SAT 96
--- NOTE | 2021-01-29 08:07 | PT.IPTN ---
Current Diagnoses Unilateral primary osteoarthritis, right hip (01/28/21) Surgery Performed Operation Date: 01/28/21 07:45 Actual Procedures p Total Hip Arthroplasty/Anterior Approach(Right) - Mili Walden MD Physical Therapy Treatment Note M2 PT-IP Current Condition Start: 01/28/21 17:33 Freq: NEEDED Status: Active Protocol: Document 01/28/21 14:55 AB (Rec: 01/28/21 17:47 AB [email or web address]) Physical Therapy Current Condition Current Condition Evaluation Date 01/28/21 Treatment Diagnosis s/p r VIVIAN anterior approach; difficulty in walking Onset Date 01/28/21 Precautions Anterior Hip Precautions No Hip Extension,No Hip External Rotation Weight Bearing Status Weight Bearing Status Weight Bear as Tolerated Allowed Weight Bearing Amount (enter % RLE WBAT or #) (%) M3 PT-IP Subjective Start: 01/28/21 17:33 Freq: NEEDED Status: Active Protocol: Document 01/29/21 07:31 MB (Rec: 01/29/21 08:07 MB [id number]) Subjective Physical Therapy Visit Type Type Treatment Note Visit Start Time 07:31 Visit Stop Time 07:56 Total Visit Minutes 25 Number of LAND CONSERVATION SPECIALIST Visits 0 Physical Therapy Visit Comments Patient Comments Pt states that he is doing well and he is agreeable to PT . Therapy Pain Assessment Pain When Pain Assessed During Mobility Pain Present Pain Present Denied Pain M4 PT-IP Mobility and Gait Start: 01/28/21 17:33 Freq: NEEDED Status: Active Protocol: Document 01/29/21 07:31 MB (Rec: 01/29/21 08:07 MB [id number]) PT-Bed Mobility Assessment Supine to Sit Supine to Sit Independent Sit to Supine Sit to Supine Independent Scooting Scooting to Edge of Bed Independent PT-Transfer Assessment Sit to and From Stand Sit to and from Stand Independent Equipment Transfer Assistive Device Gait Belt,Front Wheeled Walker Orthotic/Prosthetic Devices or Brace: No Comments Mobility Comments Pt alert and ready for PT, hopes to d/t today and denies pain. He performs bed mobility , sit to stand from bed, brushing teeth, urinating standing at commode and sit to finished goods inspector chair with I. PT provides set-up occ for toothbrush wrapper, opening mouth wash, getting hand tip inserter and mask Gait Assessment Gait Gait Assistance Required: Independent,Standby Assistance Distance (Feet) 150 Able to Maintain Weight Bearing Status Yes During Gait Assistive Devices Assistive Device Gait Belt,Front Wheeled Walker Orthotic/Prosthetic Devices or Brace: No Gait Deviations General Gait Pattern Decreased Stride Length, Decreased Feet Clearance, Flexed Trunk Factors Limiting Gait Function Factors Limiting Gait Function Decreased Strength Comments Gait Comments Pt gait trains from bed to sink, sink to BR and then BR out into hallway, down the hallway, up and down 3 steps x2 and back to chair in room: 6', 10', 160', 150' with post- op step-to gait pattern right and then left foot and slow edward. He denies pain. Stair Climbing Assessment Evaluation Level of Assist On Stairs Standby Assistance Devices Stair Climbing Assistive Devices Left Railing,Right Railing Technique/Endurance Stair Climbing Direction Ascend and Descend Stair Climbing Technique Step to Step Number of Steps Climbed 3 Stair Climbing Set # Repetitions (reps) 2 Comments Stair Climbing Comments Pt catches himself when he starts to descend with left foot first, he is able to manage stairs well. PT-Balance Assessment Sitting Balance and Reactions Static Sitting Balance Ability Good Dynamic Sitting Balance Ability Good Standing Balance and Reactions Static Standing Balance Ability Good Dynamic Standing Balance Ability Good Device Used RW M5 PT-IP Objective Assessments Start: 01/28/21 17:33 Freq: NEEDED Status: Active Protocol: Document 01/28/21 14:55 AB (Rec: 01/28/21 17:47 AB [id number]) Orientation Orientation/Cognition Level of Alertness Alert Orientation Name,Place,Situation Language Function Ability No Deficits Noted Safety Awareness Decreased Safety Awareness Gross Range of Motion Lower Extremity ROM Assessment Within Functional Limits Strength Lower Extremity Strength Assessment Within Functional Limits Muscle Tone Muscle Tone WNL Yes M6 PT-IP Treatment Start: 01/28/21 17:33 Freq: NEEDED Status: Active Protocol: Document 01/29/21 07:31 MB (Rec: 01/29/21 08:07 MB [id number]) Physical Therapy Treatment Education Education Provided Precautions Other Treatments Other Treatment Performed Follow-up with surgeon's office about OPPT M7 PT-IP Assessment and Plan Start: 01/28/21 17:33 Freq: NEEDED Status: Active Protocol: Document 01/29/21 07:31 MB (Rec: 01/29/21 08:07 MB [id number]) PT Summary Assessment and Plan Summary Assessment Summary Pt mobilizes well today in the bed, room, performing transfers, gait down the hallway and on the steps. He is ready to d/c acute PT. He has met PT goals (only opted to do steps x6 in order not to increase pain before d/c). Frequency of Treatment Frequency Of Treatment Discharge Precautions Anterior Hip Precautions No Hip Extension,No Hip External Rotation Other Precautions WBAT RLE Recommendations To Nursing Amount of Assist Needed Standby Assistance Discharge Recommendations PT Discharge Recommendations Home with Assistance, Outpatient PT Transportation Needs at Discharge Private Vehicle
[2021-01-29] MEDS: ACETAMINOPHEN 325 MG TABLET 650 MG PO ×2 (09:07→13:46)
[2021-01-29] MEDS: GABAPENTIN 600 MG TABLET PO ×3 (09:07→17:14)
[2021-01-29] MEDS: DOCUSATE 100 MG CAPSULE PO (09:07)
[2021-01-29] MEDS: OXYCODONE IR 5 MG TABLET PO ×2 (11:21→14:31)
--- NOTE | 2021-01-29 12:39 | PM.PNPO.1 ---
Subjective Subjective Date Patient Seen: 01/29/21 Time Patient Seen: 12:39 Interval history: Patient states he is doing well overall and is in mild discomfort at rest. At this time he denies fever, chills, nausea, chest pain, shortness of breath, or urinary retention. He reports good sensation throughout the bilateral lower extremities. Exam Vital Signs (past 8 hours): - 01/29/21 08:00 Temperature 98 F Pulse Rate 66 Respiratory Rate 17 Blood Pressure 125/70 Pulse Oximetry 96 Oxygen Delivery Method Room Air Oxygen Flow Rate 0 Narrative Exam Narrative: 60-year-old male postop day 1 status post right anterior total hip arthroplasty. Patient is resting comfortably in bed, is in no acute distress, is alert and oriented x3. Skin is warm dry, and the skin surrounding the incision site is free of erythema, warmth, induration, or discharge. Aquacel dressing over the incision site is clean, dry, and intact. Tenderness to palpation appreciated over the anterolateral portion of the proximal right thigh. Good sensation appreciated throughout the bilateral lower extremities to light touch. Hip flexion performed bilaterally without difficulty or discomfort, left greater than right. Ankle dorsiflexion, plantar flexion, eversion, inversion performed bilaterally without difficulty or discomfort. DP pulses palpated bilaterally. Calves are soft and nontender, negative Homans sign. No other signs of DVT appreciated. Const General: cooperative, healthy appearing and comfortable Resp Effort & Inspection: normal respiratory effort and able to speak in complete sentences Skin General: no rashes or lesions noted Objective Labs Result Diagrams: 01/29/21 04:30 Labs: Laboratory Results - last 24 hr 01/29/21 04:30 Hgb 12.5 L Hct 38.7 L PFSH Medical History Easy bruisability Kidney stones Low back pain Osteoarthritis Pulmonary embolism (~2015) Sleep apnea Stomach ulcer Surgical History History of total left hip arthroplasty (04/23/20) History of vasectomy Hx of appendectomy Hx of arthroscopy of left knee Hx of lithotripsy Social History household members: spouse Smoking Status: Never smoker alcohol intake: current Assessment & Plan Post-op Postoperative Procedures: Procedures Operation Date: 01/28/21 07:45 Actual Procedure Side Surgeon p Total Hip Arthroplasty/Anterior Approach Right Mili Walden MD Postoperative day: 1 Postoperative status: doing well Postoperative plan: ambulate Postoperative plan narrative: Patient is to continue working on ambulation with the assistance of a front wheeled walker with physical therapy. Anterior hip precautions, standard total hip replacement protocol. Current pain management regimen is to be continued as is adequately controlled the patient's pain level. Aspirin 81 mg twice daily is to be continued for DVT prophylaxis along with the assistance of sequential compression devices. Plan for discharge home likely today or tomorrow pending successful work with PT.
[2021-01-29 13:42] VITALS: BP 120/71; PULSE 63; RESP 16; TEMP 36.5; O2SAT 96
--- NOTE | 2021-01-29 14:54 | PC.NURSE ---
Feels ready to d/c home. Seen by PT and given their instructions. Pain in control with oxy. Awaits LINO Fried to see him and d/c to home.
--- NOTE | 2021-01-29 15:57 | CM.DANOTE ---
Patient is a 60 yo male who was admitted on 01/28/21 for R[facility]. Pt has [employer] for insurance and his PCP is Dr. Celina Muñoz. EMR was reviewed. Per Ortho PA, pt tolerated hip surgery well and has pain well managed and tolerating P.O. and may be stable for d/c home today or tomorrow pending PT. Per PT, pt was able to successfully complete stairs and CG training and recommending safe d/c home with spouse assist and outpt PT. SW met briefly bedside with pt and explained role and he confirms that he lives at home in [place] with his and is active and independent at baseline and does not use DME for ambulation typically. Pt does not anticipate any SW needs at d/c and preference is home with when medically stable. Plan: SW to follow for likely pt d/c home today vs tomorrow via spouse POV and outpt PT already set up. MICHAEL Garcia
[2021-01-29 16:12] VITALS: BP 132/74; PULSE 69; RESP 14; TEMP 36.2; O2SAT 94
--- NOTE | 2021-01-29 16:22 | PM.DS.1 ---
History of Present Illness History of Present Illness Date Patient Seen: 01/29/21 Time Patient Seen: 16:22 Chief complaint: OPB Narrative: Referred to previous HPI. Discharge Providers Provider Discharge Date: 01/29/21 Primary care physician: Celina Muñoz DO Consults: 01/27/21 12:50 Consult to Anesthesiology Routine Comment: Consulting Provider: Anesthesiologist Reason for consultation: Regional block for post operative pain control 01/28/21 06:30 Consult to Anesthesiology Routine Comment: Consulting Provider: Anesthesiologist Reason for consultation: Regional block for post operative pain control 01/28/21 13:10 Consult to Discharge Planning Routine Comment: Consult to Physical Therapy Evaluate & Treat Comment: Physician Instructions: post op VIVIAN protocol Consult to Respiratory Therapy Evaluate & Treat Comment: Physician Instructions: Evaluate and treat Discharge provider: Marc Fried PA-C Summary Hospital Course Discharge Diagnosis: Right hip osteoarthritis Status post right anterior total hip arthroplasty. Hospital Course: Patient was admitted to the hospital following the above-listed procedure for the above-listed diagnosis. Following the procedure the patient has been convalescing appropriately in his pain has been managed with his current pain management regimen. Following the procedure the dressing over the incision site has remained clean, dry, and intact. Xarelto has been used for DVT prophylaxis along with the assistance of sequential compression devices. Patient has successfully worked on ambulation with the assistance of a front wheeled walker with physical therapy. He has been maintained at weight-bearing as tolerated, anterior hip precautions, standard total hip replacement protocol. Status at Discharge Cognitive/behavioral status at discharge: oriented Functional status at discharge: uses cane/walker Overall status at discharge: patient is progressing back to baseline Exam Vital Signs (past 8 hours): - 01/29/21 13:42 01/29/21 16:12 Temperature 97.7 F 97.1 F L Pulse Rate 63 69 Respiratory Rate 16 14 Blood Pressure 120/71 132/74 Pulse Oximetry 96 94 Oxygen Delivery Method Room Air Oxygen Flow Rate 0 Narrative Exam Narrative: 60-year-old male postop day 1 status post right anterior total hip arthroplasty. Patient is resting comfortably in bed, is in no acute distress, is alert and oriented x3. Skin is warm dry, and the skin surrounding the incision site is free of erythema, warmth, induration, or discharge. Aquacel dressing over the incision site is clean, dry, and intact. Tenderness to palpation appreciated over the anterolateral portion of the proximal right thigh. Good sensation appreciated throughout the bilateral lower extremities to light touch. Hip flexion performed bilaterally without difficulty or discomfort, left greater than right. Ankle dorsiflexion, plantar flexion, eversion, inversion performed bilaterally without difficulty or discomfort. DP pulses palpated bilaterally. Calves are soft and nontender, negative Homans sign. No other signs of DVT appreciated. Const General: cooperative, healthy appearing and comfortable Resp Effort & Inspection: normal respiratory effort and able to speak in complete sentences Skin General: no rashes or lesions noted Objective Labs Result Diagrams: 01/29/21 04:30 Labs: Laboratory Results - last 24 hr 01/29/21 04:30 Hgb 12.5 L Hct 38.7 L PFSH Medical History Easy bruisability Kidney stones Low back pain Osteoarthritis Pulmonary embolism (~2015) Sleep apnea Stomach ulcer Surgical History History of total left hip arthroplasty (04/23/20) History of vasectomy Hx of appendectomy Hx of arthroscopy of left knee Hx of lithotripsy Social History household members: spouse Smoking Status: Never smoker alcohol intake: current Discharge Assessment & Plan Assessment and Plan Assessment: Patient is doing well and is stable. Plan of Treatment: Patient is to continue physical therapy in the outpatient setting following discharge from the hospital. First postoperative visit in clinic is scheduled for 2 weeks following discharge. Sing over the incision site is to remain clean, dry, and intact for 2 weeks. Contact clinic if the dressing becomes damaged or soiled. Current pain management regimen is to be continued as it has adequately controlled patient's pain level. Throughout those to be continued for DVT prophylaxis. Patient is to remain weight-bearing as tolerated with the assistance of a front wheeled walker while ambulating. Anterior hip precautions, standard total hip replacement protocol. Patient is to contact clinic with any concerns or questions. Any signs of increased redness, swelling, warmth, pain, or discharge from around the incision site should be reported to the clinic. Discharge Plan Discharge Plan Patient Disposition: Home Provider Discharge Comment: Patient cleared for discharge pending PT clearance. Discharge orders & Medications Discharge Orders: Discharge (Order); Ordered 01/29/21 Ordered By: Marc Fried Prescriptions: New acetaminophen 325 mg Tablet 650 mg PO TID Qty: 90 RF: 0 ibuprofen 400 mg Tablet 400 mg PO Q4HR Qty: 90 RF: 0 oxycodone 10 mg Tablet 10 mg PO Q3HR PRN (Reason: Pain, Severe (7-10)) Qty: 42 RF: 0 Continued gabapentin 600 mg Tablet 600 mg PO QID RF: 0 acetaminophen 500 mg Tablet 1,000 mg PO TID RF: 0 Xarelto 20 mg Tablet 20 mg PO QPM RF: 0 acetaminophen 325 mg Tablet 650 mg PO TID Qty: 40 RF: 0 Follow up/Referrals: Celina Muñoz DO [Primary Care Provider] - Diet/Activity/Treatments Diet: Diet as Tolerated and Regular Activity: Weight-bearing as tolerated with the assistance of a front wheeled walker. Anterior hip precautions, standard total hip replacement protocol. Skin/Wound/Dressing Care Report to your healthcare provider any signs of infection, such as:: chills, fever, night sweats, increased pain, unusual drainage and unusual redness Dressing: Dressing over the incision site is to remain clean, dry, and intact for 2 weeks. Contact clinic if the dressing becomes damaged or soiled. Other wound treatment: Avoid placing topical ointments over the incision site. Avoid soaking the incision site. Visit Report/Discharge Packet Instructions: DI for Hip Replacement, DI for Constipation, How to Prevent Falls Discharge Data Primary Care Provider: Celina Muñoz Attending Provider: Mili Walden
[2021-01-29] MEDS: OXYCODONE IR 10 MG TABLET PO (17:13)
--- NOTE | 2021-01-29 18:52 | PC.NURSE ---
Discharge Note- Patient discharged home per doctor orders. Discharge instructions and education reviewed with patient and signed. IV line removed and bandage applied. Patient dressed self and spouse packed up all personal items. Patient left via wheelchair to private car with all personal belongings at 1735.
== END 2021-01-29 17:35 | disposition home or self-care (01) ==
LOC: OR 06:24 → AC 06:25
PROVIDERS: PCP Family Medicine; Referring Provider Orthopaedic Surgery; Visit Provider Orthopaedic Surgery
PROC: (CPT 27130; principal; 2021-01-28 07:45)
DX: M16.11 Unilateral primary osteoarthritis, right hip (principal); Z86.711 Personal history of pulmonary embolism; Z79.01 Long term (current) use of anticoagulants; Z96.642 Presence of left artificial hip joint; Z87.891 Personal history of nicotine dependence
CPT/HCPCS: 27130; 36415; 73502; 85014; 85018; 97116; 97162; 97530; C1776; C9290; J0171; J0690; J1100; J1200; J2250; J2274; J2405; J2704; J3010